=== PATIENT | male | born 1940 | race Two or more races ===

== ENCOUNTER 2022-07-16 09:58 | Emergency (ER) | payer OTHER ==
[~2022-07-16] VITALS: Ht 172.7 cm; Wt 77.1 kg
[2022-07-16] MEDS ORDERED: ACETAMINOPHEN 500 MG TABLET PO ONE (12:00)
[2022-07-16] MEDS ORDERED: SOLU-MEDROL 125MG VIAL IM ONE (12:00)
[2022-07-16 12:54] VITALS: BP 134/78
[2022-07-16] MEDS ORDERED: METH4TAB3 PO (13:43)
== END 2022-07-16 13:56 | disposition home or self-care (01) ==
LOC: EDH 09:58
DX: M54.2 Cervicalgia (principal); M79.641 Pain in right hand; I10 Essential (primary) hypertension; E11.9 Type 2 diabetes mellitus without complications; E78.00 Pure hypercholesterolemia, unspecified; Z95.5 Presence of coronary angioplasty implant and graft; Z90.89 Acquired absence of other organs; Z98.890 Other specified postprocedural states; Z88.8 Allergy status to other drugs, medicaments and biological substances
CPT/HCPCS: 71250; 96372